=== PATIENT | female | born 1990 | race Caucasian/White ===

== ENCOUNTER → 2017-08-17 08:27 | Outpatient (CLI) | payer OTHER, SELFPAY ==
--- NOTE | 2017-08-17 08:31 | RAD_ITS ---
STUDY: X-RAY - RIGHT SHOULDER REASON FOR EXAM: Female, 27 years old. Right shoulder pain following a strain. TECHNIQUE: 4 view(s) of the shoulder. COMPARISON: None. FINDINGS: Normal glenohumeral articulation. Normal acromioclavicular joint. Normal acromion. Normal humeral head and visualized proximal humerus. The soft tissue structures are unremarkable. Normal visualized pulmonary apex. RAD/Shoulder min 2 Views IMPRESSION: Normal x-ray examination of the shoulder. Electronically Signed: Juancarlos Mayer MD at 12:55 EST Tel [phone], Service support ,
== END ==
PROVIDERS: Visit Provider Physician Assistant
DX: S46.911A Strain of unspecified muscle, fascia and tendon at shoulder and upper arm level, right arm, initial encounter (principal); X58.XXXA Exposure to other specified factors, initial encounter; Y93.9 Activity, unspecified; Y92.9 Unspecified place or not applicable; Y99.9 Unspecified external cause status
CPT/HCPCS: 73030

== ENCOUNTER 2017-11-17 16:01 | Emergency (ER) | payer BC, OTHER, SELFPAY ==
[2017-11-17 16:02] VITALS: BP 147/75; PULSE 75; RESP 16; TEMP 36.8; O2SAT 98; BMI 42.5
--- NOTE | 2017-11-17 17:55 | CT_ITS ---
STUDY: CT BRAIN WITHOUT CONTRAST REASON FOR EXAM: Female, 27 years old. HEADACHE X 2 WEEKS RADIATION DOSAGE (If Supplied By Facility): CTDIvol = ( 44.99 ) mGy, DLP = ( 779.26 ) mGycm TECHNIQUE: Transaxial CT imaging of the brain was performed without administration of intravenous contrast material. Individualized dose optimization techniques were used for this CT. COMPARISON: None. FINDINGS: Normal soft tissue structures. Normal calvarium. Normal size ventricles and extra-axial spaces for the patient's age. Normal white matter tracts of the cerebral hemispheres. Normal basal ganglia and thalami. Normal brainstem. Normal cerebellum. There is no intracranial hemorrhage. There are no findings of an acute ischemic infarction. There is mild maxillary sinus disease. CT/Brain/Head without Contrast IMPRESSION: Normal unenhanced CT scan of the brain. There is mild maxillary sinus disease. Electronically Signed: Brennan Mejía MD at 19:14 EDT , Service support ,
[2017-11-17 18:19] LABS: Absolute Lymphocyte Count 2.24 X10^3/ul (0.83-4.51); Absolute Neutrophil Count 8.6 X10^3/uL (2.0-7.7); Basophil# 0.01 X10^3/uL; Basophil% 0.1 % (0-1); Eosinophils% 0.8 % (0-5); Hematocrit 37.8 % (37-47); Hemoglobin 12.4 g/dl (12.0-15.0); Lymphocyte # 2.24 X10^3/ul (4.0); Lymphocyte % 18.8 % (19-41); Mean Corp Hgb Conc 32.8 g/gl (32-36); Mean Corpuscular Hgb 27.7 pg (27.0-32.0); Mean Corpuscular Volume 84.6 fL (81-99); Monocyte# 0.96 X10^3/uL; Neutrophil # 8.61 X10^3/uL (2.7-7.7); Neutrophil % 72.1 % (47-70); Platelet Count 340 K/mm3 (150-450); RBC Distribution Width CV 13.5 % (11.6-14.6); RBC Distribution Width SD 41.1 fl (35.1-43.9); Red Blood Count 4.47 M/mm3 (4.2-5.4); White Blood Count 11.9 K/mm3 (4.4-11.0)
[2017-11-17 18:20] LABS: POSITIVE COUNT NO; POSITIVE DIFFERENTIAL NO; POSITIVE MORPHOLOGY NO
[2017-11-17] MEDS: DiphenhydrAMINE 50 MG/ML Syringe 25 MG IV (18:27)
[2017-11-17] MEDS: 0.9% Normal Saline 1,000 ML 999 ML IV (18:27)
[2017-11-17 18:29] VITALS: PULSE 78; RESP 16; O2SAT 98
[2017-11-17] MEDS: proCHLORPERazine 10 MG/2 ML Vial IV (18:29)
[2017-11-17] MEDS: Ketorolac 30 MG/ML Syringe IV (18:29)
[2017-11-17 18:31] LABS: Anion Gap 5 (5-15); BUN 11 mg/dL (7-18); BUN/Creat Ratio 17.9 RATIO (10-20); Calcium,Total 8.7 mg/dL (8.5-10.1); Chloride 106 mmol/L (98-107); Creatinine, Serum 0.61 mg/dL (0.55-1.02); EST Glomerular Filtration Rate 123 mL/min (>60); Est Glom Filt Rate - Afr Amer 149 mL/min (>60); Estimated Creatinine Clearance 138.51 ml/min; Glucose 84 mg/dL (74-106); Potassium 3.8 mmol/L (3.5-5.1); Sodium Level 139 mmol/L (136-145)
[2017-11-17 19:01] LABS: Pregnancy, Serum, hCG Quali. NEGATIVE Negative (0-9 Nonpreg)
[2017-11-17 19:44] VITALS: BP 126/69; PULSE 63; RESP 16; O2SAT 98
--- NOTE | 2017-11-17 19:54 | ED.VISSUMM ---
- ER Visit Summary Date of Service: 11/17/17 Chief Complaint: Headache History of Present Illness: The patient is a 27 F reports a 2 week history of migraine headache. She points to the back of her head. She describes the pain as throbbing or aching. It will wax and wane throughout the day but never completely resolved. Patient denies history of prior migraines or headaches. She does have nausea and photophobia. She denies recent URI symptoms or trauma. Patient has been seen by her PCP and is currently on prednisone. She states she is scheduled for an MRI next week. She does report mild twitching in the left eye on occasion. Physical Examination: Vital signs are unremarkable. Patient's lying in a darkened room. She appears nontoxic. Head neck examination is unremarkable with no focal sinus tenderness. She has no meningismus. Heart is regular rate and rhythm. Lung sounds are clear. Abdomen is soft nontender. Neuro exam is normal. Test Results: CBC was a white count 11.9 which is likely secondary to her prednisone use. Chemistry studies are normal. test negative. CT scan of the head is normal. Emergency Department Course and Treatment: Patient is given Toradol, Compazine, Benadryl, and IV fluids. Repeat evaluation she does feel more than 50% improved. She is given prescriptions for the same to use at home. She will follow-up for further testing next week as already scheduled. Treatment Plan: [] Disposition: Discharge Impression: Migraine, improved This note was generated with [employer] dictation software. It may contain incorrect words, spelling, and punctuation that were not noted in review of the chart prior to signing ED Disposition - Plan for ED Patient: Disposition: Home or Assisted Living Chief Complaint: Headache Instructions: ED Headache Migraine Prescriptions: DiphenhydrAMINE [Benadryl] 50 mg PO Q6H PRN PRN #20 capsule PRN Reason: Migraine Symptoms Prochlorperazine Maleate [Compazine] 10 mg PO 4X/DAY PRN PRN #20 tablet PRN Reason: Migraine Symptoms Ketorolac [Toradol] 10 mg PO Q6H PRN #20 tablet PRN Reason: Migraine Symptoms Referrals: Isaac Stewart MD [Primary Care Provider] - 1 Week
--- NOTE | 2017-11-17 19:57 | DCINST.ED_ITS ---
ED Disposition - Plan for ED Patient: Disposition: Home or Assisted Living Chief Complaint: Headache Instructions: ED Headache Migraine Prescriptions: DiphenhydrAMINE [Benadryl] 50 mg PO Q6H PRN PRN #20 capsule PRN Reason: Migraine Symptoms Prochlorperazine Maleate [Compazine] 10 mg PO 4X/DAY PRN PRN #20 tablet PRN Reason: Migraine Symptoms Ketorolac [Toradol] 10 mg PO Q6H PRN #20 tablet PRN Reason: Migraine Symptoms Referrals: Isaac Stewart MD [Primary Care Provider] - 1 Week
--- NOTE | 2017-11-17 20:05 | ED.RN ---
IV DC'ED, CATHETER INTACT, SMALL GAUZE DRESSING PLACED. DISCHARGE INSTRUCTIONS GIVEN TO AND REVIEWED WITH PATIENT, PATIENT DENIES QUESTIONS OR CONCERNS AND VOICES UNDERSTANDING OF DISCHARGE INSTRUCTIONS. PT AMBULATES OUT OF ROOM WITHOUT DIFFICULTY.
== END 2017-11-17 20:06 | disposition home or self-care (01) ==
PROVIDERS: Emergency Provider Emergency Medicine; Family Provider Internal Medicine; PCP Internal Medicine
DX: G43.909 Migraine, unspecified, not intractable, without status migrainosus (principal); J45.909 Unspecified asthma, uncomplicated; K21.9 Gastro-esophageal reflux disease without esophagitis; E66.9 Obesity, unspecified; Z79.899 Other long term (current) drug therapy
CPT/HCPCS: 70450; 80048; 84703; 85025; 96361; 96374; 96375; 99283; J7030; A4216

== ENCOUNTER 2018-04-28 11:00 | Emergency (ER) | payer OTHER, SELFPAY ==
[2018-04-28 11:00] VITALS: BP 133/83; PULSE 74; RESP 18; TEMP 36.1; O2SAT 98; BMI 40.1
--- NOTE | 2018-04-28 11:19 | RAD_ITS ---
STUDY: X-RAY - LEFT ANKLE REASON FOR EXAM: Female, 27 years old. Swelling, pain TECHNIQUE: 3 view(s) of the ankle. COMPARISON: None. FINDINGS: Normal visualized distal tibia and fibula. Normal medial and lateral malleoli. Normal tibiotalar articulation and ankle mortise. Normal visualized talus and calcaneus. The visualized subtalar, talonavicular, calcaneocuboid and tarsal articulations are normal. The soft tissue structures are unremarkable. RAD/Ankle min 3 Views IMPRESSION: Normal x-ray examination of the ankle. Electronically Signed: Lenard Kunz DO at 12:14 EDT Tel [phone], Service support ,
--- NOTE | 2018-04-28 11:20 | ED.VISSUMM ---
- ER Visit Summary Date of Service: 04/28/18 Chief Complaint: Left ankle pain History of Present Illness: The patient is a 27 F who reports that at work they were moving a palate and it slammed into a cart and her left ankle got pinned between 2 carts. She denies any other injuries. She reports she is a sharp pain in her ankle is 7 out of 10 at worst and 6 out of 10 currently. I it is worsened with walking periods relieved by rest and Aleve. She denies any paresthesias distally. Physical Examination: Vitals: Stable. Afebrile. Neck: No vertebral tenderness. Full ROM without difficulty. Cleared by NEXUS criteria. Back: No vertebral tenderness. General: A&O x 3. NAD. Cardiovascular exam: Regular rate and rhythm, no murmur, rub or gallop. Respiratory exam: Chest nontender. No crepitus. Clear to auscultation bilaterally. No wheezes or stridor. Abdominal exam: Soft, nontender, nondistended, normal bowel sounds. No pain in RUQ or LUQ specifically. No peritoneal signs. Extremity: Moderate tenderness palpation soft tissue swelling over the lateral malleolus and the anterior surface of her ankle. Mild tenderness palpation over the medial malleolus. There is no pain at the base the fifth metatarsal or the remainder of the foot. No pain over the proximal fibula. She is neurovascular intact distal sensation light touch less than 2-second cap refill. She has 2+ dorsalis pedis pulse. Test Results: X-ray is negative. Emergency Department Course and Treatment: Patient was treated with Tylenol. She is resting comfortably. Treatment Plan: Patient will be discharged instructions use Tylenol and/or ibuprofen for pain. Follow-up with [facility] in 1 week for another exam. She is instructed to have limited walking at work. Disposition: To home in improved and stable condition. Impression: 1. Crush injury left ankle. This note was generated with [employer] dictation software. It may contain incorrect words, spelling, and punctuation that were not noted in review of the chart prior to signing ED Disposition - Plan for ED Patient: Chief Complaint: Lower Extremity Injury Instructions: ED Contusion Lower Ext Referrals: [facility] [GROUP OF PHYSICIANS] - 1 Week
[2018-04-28 13:05] VITALS: RESP 18
== END 2018-04-28 13:07 | disposition home or self-care (01) ==
LOC: ED 11:26
PROVIDERS: Emergency Provider Emergency Medicine; Family Provider Internal Medicine; PCP Internal Medicine
DX: S97.02XA Crushing injury of left ankle, initial encounter (principal); W23.0XXA Caught, crushed, jammed, or pinched between moving objects, initial encounter; Y93.9 Activity, unspecified; Y92.89 Other specified places as the place of occurrence of the external cause; Y99.0 Civilian activity done for income or pay
CPT/HCPCS: 73610; 99282

== ENCOUNTER → 2020-03-03 13:39 | Outpatient (CLI) | payer OTHER, SELFPAY ==
[2020-03-03 13:24] VITALS: BMI 40.1
[2020-03-03 14:41] LABS: HIV - WCH Non-Reactive (Nonreactive)
[2020-03-05 01:33] LABS: Rapid Plasmin Reagin (RPR) NONREACTIVE (NONREACTIVE)
[2020-03-05 03:07] LABS: HCV Quant. RNA PCR HCV Not Detected IU/mL (.)
[2020-03-06 05:07] LABS: Chlamydia By Nucleic Acid AMP Negative (Negative)
[2020-03-06 09:55] LABS: HPV APTIMA, High Risk Negative (Negative)
[2020-03-06 15:51] LABS: Gonococcus By Nucleic Acid AMP Negative (Negative)
== END ==
PROVIDERS: Referring Provider Nurse Practitioner Women's Health; Visit Provider Nurse Practitioner Women's Health
DX: Z12.4 Encounter for screening for malignant neoplasm of cervix (principal); Z11.3 Encounter for screening for infections with a predominantly sexual mode of transmission
CPT/HCPCS: 36415; 86592; 86703; 87491; 87522; 87591; 87624; 88175; G0145

== ENCOUNTER 2021-01-24 10:30 | Emergency (ER) | payer OTHER, SELFPAY ==
[2020-03-03 13:24] VITALS: BMI 40.1
[2021-01-24 10:31] VITALS: BP 122/79; PULSE 93; RESP 16; TEMP 36.2; O2SAT 95; BMI 45.6
--- NOTE | 2021-01-24 10:51 | RAD_ITS ---
STUDY: X-RAY CHEST REASON FOR EXAM: Female, 30 years old. cough, C/O NV that began suddenly this AM. TECHNIQUE: Single AP portable view of the chest. COMPARISON: 04/03/2017 FINDINGS: The lungs are clear and expanded. There is no demonstrated pleural abnormality. Normal size heart. Normal mediastinum and anatoliy. Normal visualized pulmonary arteries. Normal visualized aortic arch and descending thoracic aorta. Normal visualized thoracic spine. Normal visualized ribs, clavicles, and shoulders. There is no demonstrated abnormality of the visualized soft tissue structures of the upper abdomen. RAD/Chest 1 View (Portable) IMPRESSION: Normal x-ray examination of the chest. Electronically Signed: Carlito Lindsay MD at 11:39 EDT Tel , Service support ,
[2021-01-24] MEDS: Ondansetron 4 MG/2 ML Vial IV (11:00)
[2021-01-24] MEDS: 0.9% Normal Saline 1,000 ML 1000 ML IV (11:00)
[2021-01-24 11:46] LABS: Internal QC Validated? YES +Cl - CLEAR BKGD; Pregnancy, Serum, hCG Quali. NEGATIVE Negative
--- NOTE | 2021-01-24 12:47 | EDS_ITS ---
HPI History of Present Illness Chief Complaint: Nausea/Vomiting Informant: patient Onset/Context/Timing Onset: Today Current Severity: Moderate Maximum Severity: Moderate Narrative Narrative: Patient present secondary to nausea and vomiting that started this morning. She states she felt well when she went to bed last evening. Shortly after getting up she drank a glass of water and then vomited in the shower. She is not been able to keep down fluids since that time. She denies significant abdominal pain. She does report having a mild cough and some sinus irritation lately. [facility] Medical History Depression HSV (herpes simplex virus) infection Home Medications ondansetron 4 mg PO Q8H PRN #10 tab 01/24/21 [Rx Last Taken Unknown] Allergy/AdvReac Type Severity Reaction Status Date / Time permethrin AdvReac Rash Verified 01/24/21 10:33 [From RID Complete Lice [place] Kit] piperonyl butoxide AdvReac Rash Verified 01/24/21 10:33 [From RID Complete Lice [place] Kit] pyrethrins AdvReac Rash Verified 01/24/21 10:33 [From RID Complete Lice [place] Kit] BEE STING Allergy Swelling Uncoded 01/24/21 10:33 Surgical History (Updated 01/25/21 @ 01:[address] Anny Dennis MD) delivery delivered gallbladder surgery H/O tubal ligation Social History Smoking Status: Never smoker alcohol intake: never substance use type: does not use caffeine: Yes frequency: daily seatbelt use: always do you feel safe at home: Yes additional social history: Allan- [employer] Nancy ROS ROS ED Constitutional Constitutional ED: Denies chills or fever(s) Eyes Eyes: Denies change in vision ENT ENT ED: Denies sore throat Cardiovascular Cardiovascular: Denies chest pain Respiratory/Chest Respiratory/Chest: Reports cough; Denies dyspnea Gastrointestinal Gastrointestinal: Reports nausea and vomiting; Denies abdominal pain or diarrhea Genitourinary Genitourinary ED: Denies dysuria Musculoskeletal Musculoskeletal: Denies back pain Integumentary Denies rash Neurologic Neurologic: Denies headache(s) or weakness Psychiatric Psychiatric: Denies anxiety or depression Endocrine Endocrinology: Denies polydipsia or polyuria Allergic/Immunologic Allergic/Immunologic ED: Denies urticaria EXAM Physical Exam Const Vital Signs: 01/24/21 10:31 01/24/21 13:03 Temperature 97.1 F L Temperature Source Temporal Pulse Rate 93 80 Respiratory Rate 16 18 Blood Pressure 122/79 H Blood Pressure Mean 93 Pulse Ox 95 95 Oxygen Delivery Method Room Air Positive well nourished and well developed General Appearance ED: well developed HEENT Reports normocephalic and head/scalp atraumatic Eyes PERRL and EOMs intact bilaterally Neck supple Chest Wall inspection of chest normal and palpation of chest normal Resp normal respiratory effort and clear to auscultation bilaterally Cardio regular rate and regular rhythm GI non-tender Auscultation: hypoactive bowel sounds Palpation: soft Extremity normal to inspection Neuro oriented x3 and no sensory deficits noted Sensorium / Orientation: alert Motor Exam: strength 5/5 throughout Psych mental status grossly normal Skin no rashes or lesions noted MDM MDM MDM Narrative Medical decision making narrative: Patient is given IV fluids and Zofran. Chest x-ray and test obtained. Lab Data Attestation: I reviewed the patient's lab results. Labs: Laboratory Results - last 24 hr 01/24/21 11:05 Serum , Qual NEGATIVE Radiography Diagnostic Testing: Radiology Impression Chest X-Ray 01/24/21 10:51 IMPRESSION: Normal x-ray examination of the chest. Electronically Signed: Carlito Lindsay MD at 11:39 EDT Tel , Service support , Treatment and Re-Evaluation Comments:: Portable chest x-ray per my interpretation reveals no acute infiltrate. Radiologist interpretation is reviewed. Patient does report significant improvement in her symptoms and has been able to tolerate p.o. She is given a prescription for Zofran for home as needed. Return instructions provided. Discharge Plan Triage Chief Complaint: Nausea/Vomiting ED Provider: Anny Dennis Dx/Rx/DC Orders Clinical Impression: Vomiting Instructions: ED Vomiting (Adult) Prescriptions: New ondansetron 4 mg tablet,disintegrating 4 mg PO Q8H PRN (Reason: nausea and vomiting) Qty: 10 RF: 0 Primary Care Provider: Isaac Stewart Referrals: Isaac Stewart MD [Primary Care Provider] - 3-5 Days if not improving Disposition Disposition: Home, Self Care Discharge Date/Time: 01/24/21 13:04
[2021-01-24 13:03] VITALS: PULSE 80; RESP 18; O2SAT 95
== END 2021-01-24 13:04 | disposition home or self-care (01) ==
PROVIDERS: Emergency Provider Emergency Medicine; PCP Internal Medicine
DX: R11.2 Nausea with vomiting, unspecified (principal); R05 Cough
CPT/HCPCS: 71045; 84703; 96361; 96374; 99283; J7030; A4216; J2405

== ENCOUNTER 2021-09-15 17:33 | Emergency (ER) | payer OTHER, SELFPAY ==
[2021-09-15 17:34] VITALS: BP 153/83; PULSE 94; RESP 18; TEMP 36.3; O2SAT 96; BMI 45.6
[2021-09-15 17:55] VITALS: PULSE 87; RESP 18; O2SAT 98
--- NOTE | 2021-09-15 18:00 | RAD_ITS ---
STUDY: X-RAY CHEST REASON FOR EXAM: Female, 31 years old. PT STATES WHEEZING AND COUGH X 2 MOS Dyspnea TECHNIQUE: XR Chest 1 View COMPARISON: 8.07.16 FINDINGS: There is no demonstrated pleural abnormality. Normal size heart. Normal mediastinum and anatoliy. Normal visualized pulmonary arteries. There is atherosclerotic calcification of the aortic arch with tortuosity. Normal visualized thoracic spine. There is degenerative osteoarthritis of the bilateral shoulders. There is no demonstrated abnormality of the visualized soft tissue structures of the upper abdomen. RAD/Chest 1 View (Portable) IMPRESSION: There are no acute findings. Electronically Signed: Brennan Mejía MD at 18:23 EDT ,
[2021-09-15] MEDS: Ipratropium/Albuterol Sulfate 3 ML AMPUL.NEB INHALATION (18:07)
[2021-09-15 18:08] VITALS: PULSE 82; RESP 24
--- NOTE | 2021-09-15 19:23 | EDS_ITS ---
HPI History of Present Illness Chief Complaint: Shortness of Breath Informant: patient Onset/Context/Timing Onset: Month(s) (2) Context: gradual Timing: Continuous Quality: Positive for Wheezing Worsened by: Exertion Relieved by: Nothing Associated Symptoms cough, rhinorrhea, subjective and chills; Negative for ear pain, fever, sore throat, sweats, clear sputum, white sputum, yellow sputum or green sputum Chest Pain: Positive for None Narrative Narrative: Patient presents with shortness of breath that has been getting progressively worse over the past 2 months. Patient states over the past few days her wheezing became worse. Patient states her breathing is worse with any exertion. Patient states it is better with rest. Patient admits to a cough but denies any sputum production. Patient admits to some rhinorrhea. Patient denies any sore throat or ear pain. Patient admits to some subjective chills but denies any fevers. Patient does admit to some nausea but denies any vomiting. Patient denies any chest pain. [facility] Medical History Depression HSV (herpes simplex virus) infection Home Medications ondansetron 4 mg PO Q8H PRN #10 tab 01/24/21 [Rx Last Taken Unknown] valacyclovir 500 mg tablet 500 mg PO BID PRN #60 tab 07/09/21 [Rx Last Taken Unknown] albuterol sulfate [Ventolin HFA] 2 puff INHALATION Q4H PRN PRN #1 inhaler 09/15/21 [Rx Last Taken Unknown] prednisone 60 mg PO DAILY #15 tablet 09/15/21 [Rx Last Taken Unknown] Allergy/AdvReac Type Severity Reaction Status Date / Time permethrin AdvReac Rash Verified 09/15/21 17:35 [From RID Complete Lice [place] Kit] piperonyl butoxide AdvReac Rash Verified 09/15/21 17:35 [From RID Complete Lice [place] Kit] pyrethrins AdvReac Rash Verified 09/15/21 17:35 [From RID Complete Lice [place] Kit] BEE STING Allergy Swelling Uncoded 09/15/21 17:35 Surgical History delivery delivered gallbladder surgery H/O tubal ligation Social History Smoking Status: Never smoker alcohol intake: never substance use type: does not use caffeine: Yes frequency: daily seatbelt use: always do you feel safe at home: Yes additional social history: Allan- [employer] Nancy ROS ROS ED Constitutional Constitutional ED: Reports chills; Denies fever(s) Eyes Eyes: Denies blurry vision or change in vision ENT ENT ED: Denies rhinorrhea or sore throat Cardiovascular Cardiovascular: Denies chest pain or palpitations Respiratory/Chest Respiratory/Chest: Reports cough and dyspnea; Denies sputum Gastrointestinal Gastrointestinal: Reports nausea; Denies vomiting Genitourinary Genitourinary ED: Denies dysuria or hematuria Musculoskeletal Musculoskeletal: Denies back pain or neck pain Integumentary Denies abscess or rash Neurologic Neurologic: Denies headache(s) or weakness Allergic/Immunologic Allergic/Immunologic ED: Denies mouth swelling or urticaria EXAM Physical Exam Const Vital Signs: 09/15/21 17:34 09/15/21 17:55 09/15/21 18:08 Temperature 97.4 F L Temperature Source Temporal Pulse Rate 94 87 82 Respiratory Rate 18 18 24 H Respiratory Effort Normal Respiratory Depth Normal Respiratory Pattern Normal Tachypnea Blood Pressure 153/83 H Blood Pressure Mean 106 Pulse Ox 96 98 Oxygen Delivery Method Room Air Room Air 09/15/21 19:50 09/15/21 20:05 Temperature Temperature Source Pulse Rate 69 89 Respiratory Rate 18 18 Respiratory Effort Respiratory Depth Respiratory Pattern Blood Pressure 126/90 H Blood Pressure Mean 102 Pulse Ox 97 Oxygen Delivery Method Room Air Positive well nourished, well developed and obese General Appearance ED: well developed and NAD Nutritional Appearance: obese HEENT Reports moist mucous membranes Neck supple and no JVD Resp normal respiratory effort Auscultation: wheezes expiratory wheezes and throughout Cardio regular rate and regular rhythm GI non-tender Palpation: soft Neuro oriented x3, CN's II-XII intact bilaterally and no sensory deficits noted Sensorium / Orientation: alert Motor Exam: strength 5/5 throughout Psych mental status grossly normal MDM MDM MDM Narrative Medical decision making narrative: Patient was given a DuoNeb initially. Patient had minimal improvement with this. Portable 1 view chest x-ray was obtained. On my interpretation, lung jin are clear. There is normal cardiac silhouette. Bony thorax is normal. There is no acute process noted. Radiologist also interpreted the x-ray and agrees. Patient was given a repeat albuterol. Patient was given a dose of prednisone. COVID-19 rapid antigen was also obtained and was negative. Patient felt better on reevaluation. Patient was given a prescription for prednisone and albuterol inhaler. Patient was instructed to follow-up with her primary care physician in 5 to 7 days. Patient understood and was agreeable with the plan. All questions were answered. Radiography Chest X-Ray - ED: 1 View, Read by ED Physician, Read by Radiologist and No Acute Disease Diagnostic Testing: Clinical Impression(s) from Imaging Studies Chest X-Ray 09/15/21 18:00 IMPRESSION: There are no acute findings. Electronically Signed: Brennan Mejía MD at 18:23 EDT Reading Location ID and State: [facility] / [place] , Service support , Discharge Plan Triage Chief Complaint: Shortness of Breath ED Provider: Anup Quach Dx/Rx/DC Orders Clinical Impression: Asthma exacerbation Instructions: ED Asthma, Acute (Adult) Prescriptions: New prednisone 20 MG tablet 60 mg PO DAILY Qty: 15 RF: 0 albuterol sulfate [Ventolin HFA] 1 INHALER inhaler 2 puff inhalation Q4H PRN PRN (Reason: Wheezing) Qty: 1 RF: 0 No Action ondansetron 4 mg tablet,disintegrating 4 mg PO Q8H PRN (Reason: nausea and vomiting) Qty: 10 RF: 0 valacyclovir 500 mg tablet 500 mg PO BID PRN (Reason: herpes) Qty: 60 RF: 2 Primary Care Provider: Isaac Stewart Referrals: Isaac Stewart MD [Primary Care Provider] - Disposition Disposition: Home, Self Care
[2021-09-15] MEDS: predniSONE 20 MG Tablet 60 MG PO (19:48)
[2021-09-15 19:50] VITALS: PULSE 69; RESP 18
[2021-09-15] MEDS: Albuterol 2.5 MG/3 ML VIAL.NEB. INHALATION (19:50)
[2021-09-15 20:05] VITALS: BP 126/90; PULSE 89; RESP 18; O2SAT 97
[2021-09-15 20:55] VITALS: BP 109/85; PULSE 82; RESP 18; O2SAT 98
== END 2021-09-15 20:55 | disposition home or self-care (01) ==
PROVIDERS: Emergency Provider Emergency Medicine; PCP Internal Medicine; Visit Provider Emergency Medicine
DX: J45.901 Unspecified asthma with (acute) exacerbation (principal); R68.83 Chills (without fever); R11.0 Nausea; Z20.822 Contact with and (suspected) exposure to COVID-19
CPT/HCPCS: 71045; 87811; 94640; 99283

== ENCOUNTER → 2021-12-28 | Outpatient (CLI) | payer OTHER, MEDICAID, SELFPAY ==
--- NOTE | 2021-12-28 12:24 | US_ITS ---
STUDY: ULTRASOUND OF THE FEMALE PELVIS - COMPLETE REASON FOR EXAM: Female, 31 years old. pain TECHNIQUE: Endovaginal. Transvaginal US was obtained to better visualized the ovaries. COMPARISON: None. FINDINGS: The uterus is anteverted and is in a midline position. The uterus measures 9.9 x 5 cm. There is a Nabothian cyst of the cervix. The endometrium measures 5.6 mm in thickness, and is hyperechoic. There is no demonstrated endometrial mass. There is no demonstrated myometrial mass. I.U.D. - The patient does not have an I.U.D. The right ovary is visualized. The right ovary measures 2.9x 2.4 cm. There is no right ovarian cyst or ovarian mass. There is no visualized right adnexal mass or complex lesion. There is normal arterial and normal venous vascularity. The left ovary is visualized. The left ovary measures 2.9 x 2.7 cm. There is no left ovarian cyst or ovarian mass. There is no visualized left adnexal mass or complex lesion. There is normal arterial and normal venous vascularity. There is no fluid in the cul-de-sac. Urinary bladder volume is 5 41 cc. US/Pelvic (Non ) IMPRESSION: There is a Nabothian cyst of the cervix. Electronically Signed: Brennan Mejía MD at 17:36 EDT ,
--- NOTE | 2021-12-28 12:24 | US_ITS ---
STUDY: ULTRASOUND OF THE FEMALE PELVIS - COMPLETE REASON FOR EXAM: Female, 31 years old. pain TECHNIQUE: Endovaginal. Transvaginal US was obtained to better visualized the ovaries. COMPARISON: None. FINDINGS: The uterus is anteverted and is in a midline position. The uterus measures 9.9 x 5 cm. There is a Nabothian cyst of the cervix. The endometrium measures 5.6 mm in thickness, and is hyperechoic. There is no demonstrated endometrial mass. There is no demonstrated myometrial mass. I.U.D. - The patient does not have an I.U.D. The right ovary is visualized. The right ovary measures 2.9x 2.4 cm. There is no right ovarian cyst or ovarian mass. There is no visualized right adnexal mass or complex lesion. There is normal arterial and normal venous vascularity. The left ovary is visualized. The left ovary measures 2.9 x 2.7 cm. There is no left ovarian cyst or ovarian mass. There is no visualized left adnexal mass or complex lesion. There is normal arterial and normal venous vascularity. There is no fluid in the cul-de-sac. Urinary bladder volume is 5 41 cc. US/Transvaginal Non- IMPRESSION: There is a Nabothian cyst of the cervix. Electronically Signed: Brennan Mejía MD at 17:36 EDT ,
== END | disposition home or self-care (01) ==
LOC: OPUS 12:21
PROVIDERS: PCP Internal Medicine; Visit Provider Nurse Practitioner Women's Health
DX: R10.2 Pelvic and perineal pain (principal); N94.6 Dysmenorrhea, unspecified; N88.8 Other specified noninflammatory disorders of cervix uteri
CPT/HCPCS: 76830; 76856; 93976